=== PATIENT | male | born 1985 ===

== ENCOUNTER 2022-03-23 01:08 | Emergency (ER) | payer SELFPAY ==
[2022-03-23 02:05] LABS: CARBON DIOXIDE,CO2 27.8 mmol/L (21.0-32.0); POTASSIUM,K 3.3 mmol/L (3.5-5.1)
== END 2022-03-23 02:52 ==
LOC: EDBD 01:08 → MW.ED 01:08
DX: F10.129 Alcohol abuse with intoxication, unspecified (principal)
CPT/HCPCS: 36415; 80048; 80307; 82947; 85025; 99284